=== PATIENT | female | born 1995 ===

== ENCOUNTER 2018-03-28 12:30 | Emergency (ER) | payer OTHER ==
[2018-03-28 12:47] VITALS: BP 105/62; RESP 18; O2SAT 99
--- NOTE | 2018-03-28 14:11 | ED PDOC ---
HPI: General Adult Time Seen by Provider: 03/28/18 13:12 Chief Complaint (Nursing): GI Problem Chief Complaint (Provider): nausea, anxiety "I havent slept" History Per: Patient History/Exam Limitations: no limitations Severity: Moderate Additional Complaint(s): 23yo female c/o anxiety, sleeplessness and nausea ongoing x2-3 days. Denies chest pain, SOB, depressive thoughts, drug/etoh use or hallucinations. States has felt very anxious for quite some time, recently worsened to insomnia. Denies new stressors in family, work or relationships. LMP Mar 19 -normal. Past Medical History Reviewed: Historical Data, Nursing Documentation, Vital Signs Vital Signs: Last Vital Signs Temp Pulse 64 03/28/18 12:45 Resp 18 03/28/18 12:45 BP 105/62 03/28/18 12:45 Pulse Ox 99 03/28/18 12:45 - Medical History PMH: No Chronic Diseases - Family History Family History: States: No Known Family Hx - Social History Current smoker - smoking cessation education provided: No Alcohol: None Drugs: Denies - Immunization History Hx Tetanus Toxoid Vaccination: Yes Hx Influenza Vaccination: No Hx Pneumococcal Vaccination: No - Home Medications Home Medications: Ambulatory Orders Medication Instructions Recorded Azithromycin [Zithromax Z-Marcus] 250 mg PO DAILY #1 tab 07/27/15 Promethazine HCl/Codeine 5 ml PO HS #80 ml 07/27/15 [Prometh-Codein 6.25-10 mg/5 ml] ALPRAZolam [Xanax] 0.25 mg PO BID PRN #5 tab 03/28/18 - Allergies Allergies/Adverse Reactions: Allergies Allergy/AdvReac Type Severity Reaction Status Date / Time No Known Allergies Allergy Unverified 07/27/15 18:31 Review of Systems ROS Statement: Except As Marked, All Systems Reviewed And Found Negative Constitutional: Negative for: Fever Cardiovascular: Positive for: Palpitations. Negative for: Chest Pain Respiratory: Negative for: Shortness of Breath Gastrointestinal: Positive for: Nausea. Negative for: Abdominal Pain Genitourinary Female: Negative for: Dysuria Musculoskeletal: Negative for: Neck Pain Skin: Negative for: Lesions Neurological: Negative for: Weakness, Numbness, Incoordination, Dizziness Psych: Positive for: Anxiety. Negative for: Depression, Psychosis, Suicidal ideation, Withdrawal Physical Exam - Reviewed Nursing Documentation Reviewed: Yes Vital Signs Reviewed: Yes - Physical Exam Appears: Positive for: Non-toxic (anxious appearing), No Acute Distress Head Exam: Positive for: ATRAUMATIC, NORMAL INSPECTION, NORMOCEPHALIC Skin: Positive for: Normal Color, Warm, DRY Eye Exam: Positive for: EOMI, Normal appearance, PERRL ENT: Positive for: Normal ENT Inspection Neck: Positive for: Normal, Painless ROM Cardiovascular/Chest: Positive for: Regular Rate, Rhythm Respiratory: Positive for: CNT, Normal Breath Sounds Gastrointestinal/Abdominal: Positive for: Normal Exam, Soft Back: Positive for: Normal Inspection Extremity: Positive for: Normal ROM Neurologic/Psych: Positive for: Alert, Oriented - Laboratory Results Urine POC: Negative - ECG ECG: Positive for: Interpreted By Me ECG Rhythm: Positive for: Sinus Bradycardia, Nonspecific Changes Rate: 54 O2 Sat by Pulse Oximetry: 99 Pulse Ox Interpretation: Normal Medical Decision Making Medical Decision Making: workup for anxiety initiated EKG interpreted by me sinus montserrat at 54bpm no interval abnormalities. cleared by crisis for DC, given therapy appt within 10days, denies harmful thoughts on discharge, feels better and wants to go home. Disposition - Clinical Impression Clinical Impression: Anxiety - Patient ED Disposition Is Patient to be Admitted: No Counseled Patient/Family Regarding: Studies Performed, Diagnosis - Disposition Referrals: [facility] [Outside] Disposition Time: 16:01 Condition: STABLE Additional Instructions: Followup with therapist as scheduled and directed. Return to ER for any new or worsening symptoms, take xanax ONLY NEEDED 0.25mg 2x daily. This medication is addictive, use minimum amount necessary and avoid retirement use. Prescriptions: ALPRAZolam [Xanax] 0.25 mg PO BID PRN #5 tab PRN Reason: Anxiety Instructions: Anxiety, Adult (DC) Forms: [employer] ([place])
--- NOTE | 2018-03-28 16:45 | CARD ---
APPROVED REPORT Date of service: 03/28/2018 EKG Measurement Heart [id number] <Conclusion> Sinus bradycardia Otherwise normal ECG
[2018-03-28 16:49] VITALS: PULSE 54
== END 2018-03-28 17:22 | disposition home or self-care (01) ==
LOC: H.ER 12:30
DX: F41.9 Anxiety disorder, unspecified (principal)